=== PATIENT | male | born 1965 | race Hispanic/Latino ===

== ENCOUNTER → 2017-09-09 | Outpatient (CLI) | payer OTHER | END | disposition home or self-care (01) | LOC: OIH 12:42 | PROVIDERS: ATTEND Internal Medicine | DX: M77.32 Calcaneal spur, left foot (principal); M77.31 Calcaneal spur, right foot; L40.59 Other psoriatic arthropathy; M79.642 Pain in left hand; M79.641 Pain in right hand | CPT/HCPCS: 72202; 73130; 73630 ==